=== PATIENT | male | born 1960 | race Hispanic/Latino ===

== ENCOUNTER 2020-11-30 23:53 | Emergency (ER) | payer MEDICAID ==
--- OUTSIDE RECORDS SUMMARY | 2020-11-30 23:55 | XMS REPORT | Continuity of Care Document ---
:1960 Author Organization [facility] t Address [address] [place] [address] Care Team Providers Name Role Phone Alfonso Hernandez PA-C Attending Clinician [facility] Attending Clinician Unavailable Doctor Unassigned, Name Attending Clinician Unavailable Russell OWENS Attending Clinician Holden OWENS Attending Clinician Problems This patient has no known problems. Allergies, Adverse Reactions, Alerts This patient has no known allergies or adverse reactions. Medications This patient has no known medications. Procedures This patient has no known procedures. Encounters Start End Encounter Admission Attending Care Care Encounter Source Date/Time Date/Time Type Type Clinicians Facility Department ID 2020-09-27 2020-09-27 [facility] [id number] 17:26:07 23:59:00 Encounter Alfonso Onofre [id number] [place] [id number] [place] [id number] 2020-09-27 2020-09-27 Urgent Provider, [facility] [id number] 16:32:59 16:52:59 Care [facility] [id number] Care Jemima [id number] [facility] [phone] nal [address] 2020-08-08 2020-08-08 Orders Doctor ALFONSO [id number] 00:00:00 00:00:00 Only Unassigned, VIVIEN [id number] [place] [facility] [id number] 2020-07-11 2020-07-11 [facility] [id number] 00:00:00 00:00:00 Bruna Jemima [id number] [place] [id number] [facility] [id number] [address] 2020-07-02 2020-07-02 Telephone Holden [facility] [id number] 00:00:00 00:00:00 Larry Onofre [id number] [place] [id number] Professio [id number] [address] 2020-06-28 2020-06-28 Office [facility] [id number] 14:28:17 16:16:18 Visit Larry Jemima [id number] [place] [id number] Profjameeio [phone] [address] Results This patient has no known results.
[2020-12-01] MEDS ORDERED: FOLIC ACID 5 MG/ML VIAL ONE (00:26)
[2020-12-01] MEDS ORDERED: THIAMINE 200 MG/2 ML INJ ONE (00:26)
[2020-12-01] MEDS ORDERED: NA CHLORIDE 0.9% 1,000 ML ONE (00:26)
[2020-12-01] MEDS ORDERED: LIDOCAINE 1% W/EPI 1:100,000 MDV 20 ML VIAL ONE (00:26)
[2020-12-01] MEDS ORDERED: MULTIVITAMINS 10 ML VIAL (INJ) IV ONE (00:26)
[2020-12-01] MEDS ORDERED: BUPIVACAINE 0.5% PF 10 ML VIAL ONE (00:26)
[2020-12-01 00:47] LABS: Urine Blood 1+ (Negative); Urine Glucose NEGATIVE (Negative); Urine Protein NEGATIVE (NEG); Urine pH 5.5 (5.0-7.0)
[2020-12-01 00:57] LABS: Absolute Lymphocytes (CBC) 1.6 K/uL (0.7-4.9); Hematocrit 42.2 % (39.6-49.0); Lymphocytes % 23.3 % (15.3-44.8); MPV 9.1 fL (7.6-11.3); RBC Red Blood Cell Count 4.35 M/uL (4.33-5.43)
[2020-12-01 01:01] LABS: Protime INR 0.91
[2020-12-01 01:21] LABS: ALT/SGPT 23 U/L (12-78); AST/SGOT 19 U/L (15-37); Albumin 3.8 g/dL (3.4-5.0); Alkaline Phosphatase 64 U/L (45-117); BUN Blood Urea Nitrogen 5 mg/dL (7-18); Bicarbonate 23 mmol/L (21-32); Bilirubin Direct < 0.1 mg/dL (0-0.2); Bilirubin Total 0.2 mg/dL (0.2-1.0); Glucose Level 94 mg/dL (74-106); Potassium 3.9 mmol/L (3.5-5.1); Protein, Total 7.8 g/dL (6.4-8.2); Sodium Level 131 mmol/L (136-145)
--- NOTE | 2020-12-01 05:49 | ER ---
Nurse's Notes [facility] Name: Alfred Vogel Age: 60 yrs Sex: Male : 1960 Arrival Date: 11/30/2020 Time: 23:54 Bed 6 Private MD: Diagnosis: Alcohol use, unspecified with intoxication;Laceration with foreign body of unspecified part of head Presentation: 11/30 23:55 Chief complaint: EMS states: PATIENT IS POSITIVE FOR ETOH, STUMBLED AND FELL, HITTING rv HIS FACE ON A FOLDING METAL CHAIR, OBTAINED LACERATION TO THE LEFT EYEBROW, BLEEDING CONTROLLED. PATIENT IS CONFUSED AND UNABLE TO REMEMBER ANYTHING. Coronavirus screen: Client denies travel out of the [place] in the last 14 days. Ebola Screen: No symptoms or risks identified at this time. Initial Sepsis Screen: Does the patient meet any 2 criteria? No. Patient's initial sepsis screen is negative. Does the patient have a suspected source of infection? No. Patient's initial sepsis screen is negative. Risk Assessment: Do you want to hurt yourself or someone else? Patient reports no desire to harm self or others. Onset of symptoms was November 30, 2020. 23:55 Method Of Arrival: EMS: [facility] rv 23:55 Acuity: ISAURO 2 rv 12/01 00:05 Care prior to arrival: None. Mechanism of Injury: Laceration sustained while falling, rv from metal object, Injury was accidental. Trauma event details: Injury occurred in the [facility], Injury occurred: Injury occurred: December 01, 2020 Injury occurred at: 23:00. Trauma Activation: Alert Physician: ED Physician; Name: ; Notified At: ; Arrived At: Physician: General Surgeon; Name: ; Notified At: ; Arrived At: Physician: Radiology; Name: ; Notified At: ; Arrived At: Physician: Respiratory; Name: ; Notified At: ; Arrived At: Physician: Lab; Name: ; Notified At: ; Arrived At: - Immunization history: Last tetanus immunization: unknown. - Social history:: Smoking status: unknown Patient uses alcohol. Screenin:03 Abuse screen: Denies threats or abuse. Denies injuries from another. Tuberculosis rv screening: No symptoms or risk factors identified. 00:04 Nutritional screening: No deficits noted. Fall Risk Fall in past 12 months (25 points). rv No secondary diagnosis (0 pts). No IV (0 pts). Ambulatory Aid- None/Bed Rest/Nurse Assist (0 pts). Gait- Impaired (20 pts.). Mental Status- Overestimates/Forgets Limitations (15 pts.). Total Chowdhury Fall Scale indicates High Risk Score (45 or more points). Fall prevention measures have been instituted. Side Rails Up X 2 Frequent Obs/Assessments Occuring As available patient and family educated on Fall Prevention Program and Strategies. Primary Survey: 00:01 NO uncontrolled hemorrhage observed. Breathing/Chest: Respiratory pattern: regular, rv Respiratory effort: spontaneous. Circulation: Skin color: pink. Disability Alert. Exposure/Environment: There is no evidence of uncontrolled external bleeding. Obvious injury(ies) are noted at this time: LACERATION TO THE LEFT EYE BROW A warming method has been applied: A warm blanket has been provided to the patient. 01:23 A: The patient is alert. Reassessment Airway Airway Patent Breathing/Chest Respiratory rv pattern Regular. Reassessment Disability Alert. Secondary Survey: 00:01 HEENT: Face Other LACERATION TO THE LEFT EYE BROW Eyes: No injury or deformity noted. rv to bilateral eyes. Gastrointestinal: No deficits noted. : No signs and/or symptoms were reported regarding the genitourinary system. Musculoskeletal: No signs and/or symptoms reported regarding the musculoskeletal system. Injury Description: Laceration sustained to LEFT EYE BROW is full thickness, 2.6 to 7.5 cm long, not bleeding, was sustained 1-2 hours ago. Assessment: 11/30 23:59 General: Appears comfortable, Behavior is calm, CONFUSED. Pain: Complains of pain in rv face. Neuro: Level of Consciousness is confused, Oriented to none. EENT: No signs and/or symptoms were reported regarding the EENT system. Cardiovascular: Patient's skin is warm and dry. Respiratory: Airway is patent Respiratory effort is even, unlabored. Derm: Wound noted LEFT EYEBROW Wound is FULL THICKNESS. 12/01 00:03 Reassessment: C-COLLAR APPLIED. rv 00:41 Reassessment: DEVIN CO-WORKER [id number], [id number]. rv 03:21 Reassessment: patient is asleep. vital signs stable. ongoing iv fluid. rv Vital Signs: 11/30 23:55 BP 153 / 107; Pulse 75; Resp 16; Temp 97.6; Pulse Ox 100% on R/A; rv 12/01 01:22 BP 152 / 106; Pulse 83; Resp 16; Pulse Ox 96% on R/A; rv 02:00 BP 121 / 94; Pulse 67; Resp 16; Pulse Ox 96% on R/A; rv 03:00 BP 113 / 81; Pulse 66; Resp 17; Pulse Ox 97% on R/A; rv 04:00 BP 131 / 85; Pulse 68; Resp 16; Pulse Ox 97% on R/A; rv 05:49 BP 124 / 92; Pulse 81; Resp 16; Temp 98; Pulse Ox 97% on R/A; rv Home Coma Score: 00:00 Eye Response: spontaneous(4). Verbal Response: confused(4). Motor Response: obeys cp commands(6). Total: 14. 00:03 Eye Response: spontaneous(4). Verbal Response: confused(4). Motor Response: obeys rv commands(6). Total: 14. 01:22 Eye Response: spontaneous(4). Verbal Response: confused(4). Motor Response: obeys rv commands(6). Total: 14. 04:00 Eye Response: spontaneous(4). Verbal Response: oriented(5). Motor Response: obeys rv commands(6). Total: 15. 05:49 Eye Response: spontaneous(4). Verbal Response: oriented(5). Motor Response: obeys rv commands(6). Total: 15. Trauma Score (Adult): 00:03 Eye Response: spontaneous(1); Verbal Response: confused(1); Motor Response: obeys rv commands(2); Systolic BP: > 89 mm Hg(4); Respiratory Rate: 10 to 29 per min(4); Adrienne Score: 14; Trauma Score: 12 ED Course: 11/30 23:54 Patient arrived in ED. rv 23:54 Epi Lemus PA is PHCP. cp 23:54 Wai Olvera MD is Attending Physician. cp 23:55 Julio Russell RN is Primary Nurse. rv 23:58 Triage completed. rv 12/01 00:03 Patient has correct armband on for positive identification. rv 00:06 Arm band placed on right wrist. Patient placed in the treatment room, on a stretcher, rv Patient notified of wait time. C-collar applied. 00:06 Patient maintains SpO2 saturation greater than 95% on room air. Thermoregulation: warm rv blanket given to patient. 00:20 Inserted saline lock: 20 gauge in right forearm, using aseptic technique. Blood rv collected. 00:20 Initial lab(s) drawn, by me, sent to lab. EKG done, by ED staff, reviewed by Epi CLAY. 00:25 CT Head C Spine In Process Unspecified. EDMS 00:25 CT Facial Bones W/O Con In Process Unspecified. EDMS 01:56 Assist provider with laceration repair on left eye brow that was between 2.6 to 7.5 cm rv using sutures. Set up tray. Performed by Epi CLAY Dressed with 4X4s, Patient tolerated well. 05:56 IV discontinued, intact, bleeding controlled, No redness/swelling at site. Pressure rv dressing applied. Administered Medications: 00:00 Drug: Lidocaine-Epinephrine -1%: (1:100,000) 10 ml {Note: administered by BUSTER FERNANDEZ.} rv Volume: 20 ml; Route: Infiltration; 00:00 Drug: Marcaine (bupivacaine) (0.5 %) 10 ml {Note: administered by BUSTER FERNANDEZ.} Volume: rv 10 ml; Route: Infiltration; 00:29 Drug: Banana Bag - (NS 0.9% 1000 ml, foLIC Acid 1 mg, Thiamine 100 mg, Multivitamin 1 rv amp) Route: IV; Rate: 250 ml/hr; Site: right forearm; 04:30 Follow up: IV Status: Completed infusion; IV Intake: 1000ml rv 00:29 Drug: Tetanus-Diphtheria Toxoid Adult 0.5 ml {Sheet Metal Fabricator: [employer]. Exp: rv 02/09/2022. Lot #: [id number]. } Route: IM; Site: right deltoid; 05:47 Follow up: Response: No adverse reaction rv Intake: 04:30 IV: 1000ml; Total: 1000ml. rv Output: 01:23 Urine: 300ml (Voided); Total: 300ml. rv Outcome: 01:56 Patient's length of stay in the Emergency Department was greater than 2 hours. patient rv is intoxicated.Patient's length of stay extended due to 05:48 Discharge ordered by MD. willson 05:56 Discharged to home via wheelchair, with friend. rv 05:56 Condition: improved 05:56 Discharge instructions given to patient, friend, Instructed on discharge instructions, follow up and referral plans. wound care, Demonstrated understanding of instructions, follow-up care, wound care. 06:27 Patient left the ED. rv Signatures: Dispatcher [employer] EDMS Epi Lemus PA PA cp Vicente, Ronaldo, RN RN Wai Veloz MD MD mh7
--- NOTE | 2020-12-01 05:49 | EDPHYS ---
Physician Documentation [facility] Name: Alfred Vogel Age: 60 yrs Sex: Male : 1960 Arrival Date: 11/30/2020 Time: 23:54 Bed 6 Private MD: ED Physician Wai Olvera HPI: 12/01 00:00 This 60 yrs old Male presents to ER via EMS with complaints of Fall Injury. cp 00:00 The patient or guardian reports injury, a laceration, clean. The complaints affect the cp left supraorbital ridge. Context of injury: resulted from suspected fall. Onset: The symptoms/episode began/occurred today. 00:00 Associated signs and symptoms: Pertinent positives: patient admits to or smells of cp alcohol consumption, suspected LOC. - Immunization history: Last tetanus immunization: unknown. - Social history:: Smoking status: unknown Patient uses alcohol. ROS: 00:05 Skin: Positive for laceration(s), of the left supraorbital ridge. cp 00:05 Constitutional: Negative for fever. cp 00:05 Cardiovascular: Negative for chest pain. 00:05 Abdomen/GI: Negative for vomiting, black/tarry stool, rectal bleeding. 00:05 Unable to obtain ROS due to patient appears intoxicated. Exam: 00:10 Constitutional: The patient appears alert, awake, non-diaphoretic, non-toxic, well cp developed, well nourished. 00:10 Head/face: Noted is a laceration(s), that is deep, that is linear, of the left cp supraorbital ridge, swelling, that is mild. 00:10 Eyes: Pupils: equal, round, and reactive to light and accomodation, Conjunctiva: normal, no exudate, no injection, Sclera: no appreciated abnormality. 00:10 ENT: External ear(s): are unremarkable, Ear canal(s): are normal, clear, Nose: is normal, Mouth: Lips: moist, Oral mucosa: moist, Posterior pharynx: Airway: no evidence of obstruction, patent. 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 00:10 Chest/axilla: Inspection: normal, Palpation: is normal, no crepitus, no tenderness. 00:10 Cardiovascular: Rate: normal, Rhythm: regular, Edema: is not appreciated, JVD: is not appreciated. 00:10 Respiratory: the patient does not display signs of respiratory distress, Respirations: normal, no use of accessory muscles, no retractions, labored breathing, is not present, Breath sounds: are clear throughout, no decreased breath sounds. 00:10 Abdomen/GI: Inspection: abdomen appears normal, Palpation: abdomen is soft and non-tender, in all quadrants. 00:10 Back: vertebral tenderness, is not appreciated. 00:10 Musculoskeletal/extremity: Exam is negative for decreased range of motion, deformity, injury. 00:38 ECG was reviewed by the Attending Physician. cp Vital Signs: 11/30 23:55 BP 153 / 107; Pulse 75; Resp 16; Temp 97.6; Pulse Ox 100% on R/A; rv 12/01 01:22 BP 152 / 106; Pulse 83; Resp 16; Pulse Ox 96% on R/A; rv 02:00 BP 121 / 94; Pulse 67; Resp 16; Pulse Ox 96% on R/A; rv 03:00 BP 113 / 81; Pulse 66; Resp 17; Pulse Ox 97% on R/A; rv 04:00 BP 131 / 85; Pulse 68; Resp 16; Pulse Ox 97% on R/A; rv 05:49 BP 124 / 92; Pulse 81; Resp 16; Temp 98; Pulse Ox 97% on R/A; rv Whitney Coma Score: 00:00 Eye Response: spontaneous(4). Verbal Response: confused(4). Motor Response: obeys cp commands(6). Total: 14. 00:03 Eye Response: spontaneous(4). Verbal Response: confused(4). Motor Response: obeys rv commands(6). Total: 14. 01:22 Eye Response: spontaneous(4). Verbal Response: confused(4). Motor Response: obeys rv commands(6). Total: 14. 04:00 Eye Response: spontaneous(4). Verbal Response: oriented(5). Motor Response: obeys rv commands(6). Total: 15. 05:49 Eye Response: spontaneous(4). Verbal Response: oriented(5). Motor Response: obeys rv commands(6). Total: 15. Trauma Score (Adult): 00:03 Eye Response: spontaneous(1); Verbal Response: confused(1); Motor Response: obeys rv commands(2); Systolic BP: > 89 mm Hg(4); Respiratory Rate: 10 to 29 per min(4); Adrienne Score: 14; Trauma Score: 12 Laceration: 01:48 Wound Repair of 3cm ( 1.2in ) subcutaneous laceration to left supraorbital ridge. cp Linear shaped.. Distal neuro/vascular/tendon intact. Anesthesia: Wound infiltrated with 5 mls of Lido/Marcaine. Wound prep: Simple cleansing by me. Skin closed with 7 5-0 Prolene using simple sutures and sterile technique. Dressed with Bacitracin. Patient tolerated well. MDM: 11/30 23:58 Patient medically screened. 12/01 02:05 Data reviewed: vital signs, nurses notes, lab test result(s), radiologic studies, CT cp scan, I have discussed the patient's presentation/case with the attending Emergency Department Physician; and as a result, I will discharge patient. Response to treatment: the patient's symptoms have markedly improved after treatment. 02:05 Transition of care: After a detail discussion of the patient's case, care is cp transferred to Wai Olvera MD. 11/30 23:57 Order name: Basic Metabolic Panel; Complete Time: 01:47 12/01 01:47 Interpretation: Normal except: NA 131; CL 97; BUN 5; CA 8.1. 11/30 23:57 Order name: CBC with Diff; Complete Time: 01:47 11/30 23:57 Order name: ETOH Level; Complete Time: 01:47 12/01 01:47 Interpretation: Abnormal: ETOH 323. 11/30 23:57 Order name: Hepatic Function; Complete Time: 01:47 12/01 01:47 Interpretation: Normal except: GLOB 4.0; A/G 1.0. 11/30 23:57 Order name: PT-INR; Complete Time: 01:47 11/30 23:57 Order name: Ptt, Activated; Complete Time: 01:47 11/30 23:57 Order name: CT Head C Spine 11/30 23:57 Order name: CT Facial Bones W/O Con 11/30 23:57 Order name: EKG; Complete Time: 23:57 12/01 00:43 Order name: Urine Dipstick--Ancillary (enter results); Complete Time: 01:47 oe 11/30 23:57 Order name: EKG - Nurse/Tech; Complete Time: 00:30 cp 11/30 23:57 Order name: IV Saline Lock; Complete Time: 00:29 cp 11/30 23:57 Order name: Labs collected and sent; Complete Time: 00:29 cp 11/30 23:57 Order name: Urine Dipstick-Ancillary (obtain specimen); Complete Time: 00:40 cp 11/30 23:58 Order name: Dressing - Wound; Complete Time: 00:30 cp 11/30 23:58 Order name: Gloves, Sterile; Complete Time: 00:30 cp 11/30 23:58 Order name: Setup Suture Tray; Complete Time: 00:30 cp EC:38 Rate is 78 beats/min. Rhythm is regular. [place] interval is normal. QRS interval is normal. cp QT interval is normal. T waves are Inverted in lead aVR. Interpreted by me. Reviewed by me. 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 Exp: rv 02/09/2022. Lot #: [id number]. } Route: IM; Site: right deltoid; 05:47 Follow up: Response: No adverse reaction rv Disposition: 06:22 Co-signature as Attending Physician, Wai Olvera MD. mh7 Disposition: 12/01/20 05:48 Discharged to Home. Impression: Alcohol use, unspecified with intoxication, Laceration with foreign body of unspecified part of head. - Condition is Stable. - Discharge Instructions: Alcohol Intoxication, Facial Laceration. - Medication Reconciliation Form, Thank You Letter, Antibiotic Education, Prescription Opioid Use form. - Follow up: Private Physician; When: 1 week; Reason: Staple/Suture removal. - Problem is new. - Symptoms have improved. Signatures: Dispatcher [employer] EDMS Epi Lemus PA PA cp Julio Russell RN RN Wai Veloz MD MD mh7 Corrections: (The following items were deleted from the chart) 01:47 01:47 Normal except: NA 131; CL 97; BUN 5. cp cp 06:27 05:48 12/01/2020 05:48 Discharged to Home. Impression: Alcohol use, unspecified with rv intoxication; Laceration with foreign body of unspecified part of head. Condition is Stable. Discharge Instructions: Alcohol Intoxication, Facial Laceration. Forms are Medication Reconciliation Form, Thank You Letter, Antibiotic Education, Prescription Opioid Use. Follow up: Private Physician; When: 1 week; Reason: Staple/Suture removal. Problem is new. Symptoms have improved. mh7
[2020-12-01 08:25] VITALS: O2SAT 97
[2020-12-01 08:28] VITALS: BP 124/92; TEMP 98
--- NOTE | 2020-12-01 09:48 | EKG ---
Test Date: 2020-12-01 Test Time: 00:35:34 Traveling Operator: RV MEASUREMENT RESULTS: Intervals: Rate: 78 CT: 188 QRSD: 92 QT: 382 QTc: 435 Eaton: P: 55 CT: 188 QRS: 21 T: 31 INTERPRETIVE STATEMENTS: Normal sinus rhythm Normal ECG No previous ECG available for comparison Electronically Signed On 12-01-20 09:47:35 CDT by Perfecto Jensen
--- NOTE | 2020-12-02 12:07 | RAD REPORT ---
EXAM DESCRIPTION: CT - Head C Spine Mpr Wo Con - 12/01/2020 7:05 am CLINICAL HISTORY: Fall. TECHNIQUE: Axial, coronal, and sagittal images through the brain and maxillofacial region were perfo rmed in the absence of intravenous contrast. CT of the cervical spine was performed without contrast. Axial, coronal, and sagittal reconstructions were created and sent to PACS. These exams were performed according to our departmental dose-optimization program which includes use of Automated Exposure Control, adjustment of the mA and/or kV according to patient size and/or use o f iterative reconstruction technique. COMPARISON: None. FINDINGS: CT Head: Mild motion degradation. There is diffuse age-appropriate atrophy seen throughout the brain parenchym a. Mild periventricular white matter changes are seen to be present and there is mild ex vacuo dilata tion of the ventricular system. There is no intra-axial or extra-axial bleed. No midline shift. The b paz cisterns are patent. Possible small arachnoid cyst in the posterior fossa measuring 2.[address] maxillofacial: Soft tissue laceration overlying the left supraorbital region. No fracture is identified.The orbital contents appear unremarkable bilaterally. Mild mucosal thickening in the right and left maxillary sin uses. The remaining visualized paranasal sinuses and mastoid air cells are patent. Multiple dental ca john. CT cervical spine: Straightening of the normal cervical lordosis. No acute osseous abnormality identified. Vertebral bod y height and alignment are maintained. No atlantodental interval widening. Atlantoaxial alignment is maintained. C2-C3: Small posterior disc osteophyte complex. Mild right and moderate left facet hypertrophy result ing in moderate right and severe left neuroforaminal stenosis. No significant central canal narrowing . C3-C4: Small posterior disc osteophyte complex. Moderate right facet hypertrophy. Moderate bilateral neuroforaminal stenosis. No significant central canal narrowing. C4-C5: Small posterior disc osteophyte complex. Prominent bilateral facet hypertrophy results in mode rate bilateral foraminal stenosis. No significant central canal narrowing. C5-C6: Mild disc height loss. Posterior disc osteophyte complex results in narrowing of the central c anal to 0.8 to 0.9 cm AP. Prominent bilateral uncinate hypertrophy results in moderate to severe bila teral neuroforaminal stenosis. C6-C7: Moderate disc height loss. Posterior disc osteophyte complex results in moderate narrowing of the central canal to 0.6 cm AP. Prominent bilateral uncinate hypertrophy results in moderate bilatera l neuroforaminal stenosis. Paraspinal soft tissues: Unremarkable. IMPRESSION: 1. Left supraorbital soft tissue tissue laceration. Unremarkable appearance of the orb ital contents. No acute fracture. 2. No acute intracranial abnormality identified. Chronic age-related and microvascular ischemic jeffrey nges. 3. No acute osseous abnormality identified in the cervical spine. Multilevel degenerative changes w ith central canal and neural foraminal narrowing, as described. Electronically signed by: Radha Lopez MD 12/01/2020 12:38 AM CDT Due to temporary technical issues with the PACS/Fluency reporting system, reports are being signed by the in house radiologist without review as a courtesy to ensure prompt reporting. The interpreting r adiologist is fully responsible for the content of the report.
== END 2020-12-01 06:27 | disposition home or self-care (01) ==
LOC: ER 23:53
PROC: 0JQ10ZZ Repair Face Subcutaneous Tissue and Fascia, Open Approach (ICD-10-PCS; principal; 2020-12-01)
DX: S01.81XA Laceration without foreign body of other part of head, initial encounter (principal); W19.XXXA Unspecified fall, initial encounter; Y93.9 Activity, unspecified; Y92.9 Unspecified place or not applicable; Z23 Encounter for immunization
CPT/HCPCS: 96365; 93005; 85025; 80048; 36415; 80320; 85610; 80076; 85730; 81003; 70450; 72125; 70486; 76377; 90471; 99285; 96366; 12013; J3411; J7030; G0390